=== PATIENT | female | born 1990 | race American Indian/Alaskan Native ===

== ENCOUNTER 2016-06-03 23:58 | Emergency (ER) | payer OTHER ==
[2016-06-04 00:32] VITALS: BMI 40.9
[2016-06-04 00:49] LABS: RBC URINE 30 /hpf (0-3); URINE BACTERIA FEW (<OCC); URINE BILIRUBIN NEGATIVE (NEGATIVE); URINE BLOOD SMALL (NEGATIVE); URINE COLOR AMBER (YELLOW); URINE GLUCOSE (UA) NEG (Normal); URINE KETONE NEGATIVE (NEGATIVE); URINE LEUKOCYTE ESTERASE LARGE Leu/uL (Negative); URINE PROTEIN 100 mg/dL (NEGATIVE); URINE UROBILINOGEN 0.2-1.0 mg/dL (0.2-1.0); WBC CLUMPS FEW /hpf; WBC URINE 410 /hpf (0-5)
== END 2016-06-04 01:25 | disposition home or self-care (01) ==
LOC: H.EROB2 23:58
DX: O47.1 False labor at or after 37 completed weeks of gestation (principal); Z3A.29 29 weeks gestation of pregnancy; O26.93 Pregnancy related conditions, unspecified, third trimester; B37.3 Candidiasis of vulva and vagina

== ENCOUNTER 2016-07-13 19:43 | Emergency (ER) | payer OTHER ==
[2016-07-13 20:13] VITALS: BMI 42.3
[2016-07-13 21:00] LABS: BASO # 0.2 K/uL (0.0-0.2); BASO % 2.2 % (0.0-2.0); EOS # 0.1 K/uL (0.0-0.7); EOS % 0.8 % (0.0-4.0); HEMATOCRIT 33.1 % (34.0-47.0); LYMPH # 3.1 K/uL (1.0-4.3); LYMPH % 31.3 % (20.0-40.0); MEAN CELL VOLUME 88.5 fl (81.0-99.0); MEAN CORPUSCULAR HEMOGLOBIN 29.1 pg (27.0-31.0); MEAN CORPUSCULAR HGB CONC 32.8 g/dL (33.0-37.0); MEAN PLATELET VOLUME 8.4 fl (7.2-11.7); MONO # 1.1 K/uL (0.0-0.8); MONO % 11.3 % (0.0-10.0); NEUT # 5.3 K/uL (1.8-7.0); NEUT % 54.4 % (50.0-75.0); RED CELL DISTRIBUTION WIDTH 14.8 % (11.5-14.5); WHITE BLOOD COUNT 9.8 K/uL (4.8-10.8)
[2016-07-13 21:15] LABS: ALB/GLOB RATIO 0.9 (1.0-2.1); ALKALINE PHOSPHATASE 103 U/L (38-126); ALT/SGPT 24 U/L (9-52); AST/SGOT 24 U/L (14-36); BILIRUBIN,TOTAL 0.2 mg/dl (0.2-1.3); BLOOD UREA NITROGEN 7 mg/dl (7-17); CALCIUM 9.2 mg/dL (8.4-10.2); CARBON DIOXIDE 23 mmol/L (22-30); CHLORIDE 105 mmol/L (98-107); GFR AFRICAN-AMERICAN > 60; GLUCOSE,RANDOM 117 mg/dL (65-105); POTASSIUM 3.7 MMOL/L (3.6-5.0); SODIUM 136 mmol/l (132-148); TOTAL PROTEIN 6.8 G/DL (6.3-8.2)
[2016-07-13 21:23] LABS: RBC URINE 4 /hpf (0-3); URINE BACTERIA RARE (<OCC); URINE BILIRUBIN NEGATIVE (NEGATIVE); URINE BLOOD NEGATIVE (NEGATIVE); URINE COLOR YELLOW (YELLOW); URINE GLUCOSE (UA) NEG (Normal); URINE KETONE NEGATIVE (NEGATIVE); URINE LEUKOCYTE ESTERASE NEG Leu/uL (Negative); URINE PROTEIN 30 mg/dL (NEGATIVE); URINE UROBILINOGEN 0.2-1.0 mg/dL (0.2-1.0); WBC URINE 3 /hpf (0-5)
--- NOTE | 2016-07-13 22:25 | OBHP ---
Datetime: 07/13/2016 20:38 IP Adm Impression: , intrauterine IP Chief Complaint Other: Nonreactive ST in clinic IP Admit Plan: Observation/Evaluation Admit Comment, IP Provider: 26 y/o @ 34.5 weeks with a PMHx remarkable for eclampsia with demise, migraines, and fibromyalgia presents to [facility] after being sent over by Dr. Fry for a non reactive stress test. Pt reports frontal headaches that are 5/10, non radiating, and have been off an d on for the past week. The headaches are associated without aura and some blurried/spotty vision. Sy mptoms have been resolving without intervention and have not been worsening. Not currently symptomati c. No other complaints. Denies VB/LOF/CTX and reports slightly less active FM than normal. Reports sh cal is currently on bed rest since April and receiveing anticoagulation. PMD: Dr. Santos/Dr. Fry (High Risk) POBHx: eclampsia with demise in 2007, Complete SAB @ 10 weeks in 2009, TAB in 2011. PMHx: migraines with aura, fibromylagia, seasonal asthma Meds: Lovenox 50mg, PNVs, Folic Acid, baby aspirin ALL: NKDA PsurgHx: none Social: neg for ETOH, Tobacco, drug use FamilialHx: mother: HTN, DM, Breast cancer, ovarian cancer Father: HTN, DM A/P: 26 y/o @ 34.5 weeks IUP for evalution of nonreactive stress test and possible preelampis a. -monitor BP Q15 min -CBC w diff -LDH -UA -CMP -Case discussed with Dr. Tracee Roberson MD PGY1 @ 21:15 obh addendum: pt seen _ examined by me. s: denies ruq /midepigastric pain, n/v. o: u/a tr prot, other labs nl i:34.5wks .p: d/c home f/u wed with dr santos preeclampt precaut. pt d/w dr santos. Pelvic Type - PN: Not Done Extremities - PN: Normal Abdomen - PN: Normal Back - PN: Normal Breast - PN: Normal Lungs - PN: Normal Heart - PN: Normal Thyroid - PN: Normal Neurologic - PN: Normal HEENT - PN: Normal General - PN: Normal Weight - Estimated: 2240 Comments, ACOG Physical Exam: Lungs: CTA B/L, no WRR Abd: slight tenderness in epigastric region, Soft, ND, +BS Neuro: CN II-XII grossly intact, DTRs 2+ EGA AdmitDate IP: 34.5 Vital Signs Provider: Reviewed Vital Signs Provider Details: elevated BP and tachycardia IP Chief Complaint: Other NICHD Variability Prov Fetus A: Moderate 6-25bpm NICHD Accel Fetus A IP Provider: [id number] FHR Category Provider Fetus A: Category I Genitourinary Exam: Not Done DTRs - PN: Normal Datetime: 06/04/2016 00:33 FHR - Baseline A Provider: 135 Gestation - Est Wks by US: 29.1 NICHD Decel Fetus A IP Provider: None Dilatation, Provider: 0 Effacement, Provider: thick Station, Provider: high
== END 2016-07-13 22:50 | disposition home or self-care (01) ==
LOC: H.EROB2 19:43
DX: O47.03 False labor before 37 completed weeks of gestation, third trimester (principal); Z3A.34 34 weeks gestation of pregnancy; O09.299 Supervision of pregnancy with other poor reproductive or obstetric history, unspecified trimester

== ENCOUNTER 2016-07-18 18:37 | Inpatient (IN) | payer OTHER ==
[2016-07-18 19:07] VITALS: BMI 42.6
[2016-07-18] MEDS ORDERED: Betamethasone Soluspan 30 mg/5mL Inj Susp IM ONE (19:10)
[2016-07-18] MEDS: Lactated Ringer's 1,000 ML IV SCH ×2 (19:30→20:10)
[2016-07-18] MEDS ORDERED: ceFAZolin 2 GM in Sodium Chloride 0.9% 100 ML IVPB ONE (19:32)
--- NOTE | 2016-07-18 19:41 | OBADHP ---
Datetime: 07/18/2016 19:33 Admit Comment, IP Provider: 26 y/o @ 35.3 wks hx of ecampsia with IUFD at 28 weeks currently complaining of elevated BP at home with headache, blurry vision. Pt advsied by PMD to go to hospital imeediately. Upon intial evaluation, pt c/o of severe headache, blurry vision with spots, severe sho n throughout abdomen, less movmenet. VS PE see note A/P 26 y/o P0 @ 35.3 wks GA with severe preeclmapisa -admit to -spoke to MFM: intially delivery at 36 weeks however due to current status recommend immediate del arjun -R/BA/I of possible IOL vs PLTCS d/w patient, pt agrees for PLTCS , consent signed -[id number] -preeclmapitic / admission labs -ancef -abodminal prep -ac to gravity -npo Pelvic Type - PN: Adequate Extremities - PN: Normal Abdomen - PN: Abnormal Back - PN: Normal Breast - PN: Normal Lungs - PN: Normal Heart - PN: Normal Thyroid - PN: Normal Neurologic - PN: Abnormal HEENT - PN: Abnormal General - PN: Normal Presentation-Admit: Vertex FHR - Baseline A Provider: 150 Contraction Comments Provider: irregular Comments, ACOG Physical Exam: GEN: NAD, AAOX 3 HEENT NT/AT RESP: CTABb/l CTV RRR, S2/S1 ABD: Gravid, RUQ tendenress, no palbpe ctx, uterine tenderness EX: 3+ edema Gestation - Est Wks by US: 35.3 IP Hx Assessment: The History has been Reviewed and is Current Vital Signs Provider: Reviewed IP Chief Complaint: Maternal discomfort; Other NICHD Variability Prov Fetus A: Minimal - Undetectable to <5bpm FHR Category Provider Fetus A: Category II NICHD Decel Fetus A IP Provider: None Genitourinary Exam: Normal DTRs - PN: Normal EGA AdmitDate IP: 35.3 IP Adm Impression: , intrauterine IP Admit Plan: Admit to unit; Initiate Section protocol Datetime: 07/13/2016 20:38 IP Chief Complaint Other: Nonreactive ST in clinic Weight - Estimated: 2240 Vital Signs Provider Details: elevated BP and tachycardia NICHD Accel Fetus A IP Provider: [id number] Datetime: 06/04/2016 00:33 Dilatation, Provider: 0 Effacement, Provider: thick Station, Provider: high
[2016-07-18] MEDS ORDERED: Morphine 1 mg/ml preservative-free Inj(Duramorph) ONE (19:57)
[2016-07-18] MEDS ORDERED: ePHEDrine 50 mg/ml Inj ONE (19:57)
[2016-07-18 20:13] LABS: ALB/GLOB RATIO 0.9 (1.0-2.1); ALKALINE PHOSPHATASE 106 U/L (38-126); ALT/SGPT 24 U/L (9-52); AST/SGOT 23 U/L (14-36); BILIRUBIN,TOTAL 0.2 mg/dl (0.2-1.3); BLOOD UREA NITROGEN 4 mg/dl (7-17); CALCIUM 8.8 mg/dL (8.4-10.2); CARBON DIOXIDE 22 mmol/L (22-30); CHLORIDE 106 mmol/L (98-107); GFR AFRICAN-AMERICAN > 60; GLUCOSE,RANDOM 124 mg/dL (65-105); POTASSIUM 3.6 MMOL/L (3.6-5.0); SODIUM 135 mmol/l (132-148); TOTAL PROTEIN 6.6 G/DL (6.3-8.2)
[2016-07-18] MEDS ORDERED: Oxycodone/Acetaminophen 5/325 mg Tab PO PRN (20:15)
[2016-07-18 20:16] LABS: BASO % 0.4 % (0.0-2.0); EOS # 0.1 K/uL (0.0-0.7); EOS % 0.7 % (0.0-4.0); HEMATOCRIT 32.9 % (34.0-47.0); LYMPH # 3.2 K/uL (1.0-4.3); MEAN CORPUSCULAR HEMOGLOBIN 28.6 pg (27.0-31.0); MEAN CORPUSCULAR HGB CONC 32.9 g/dL (33.0-37.0); MEAN PLATELET VOLUME 8.5 fl (7.2-11.7); MONO # 1.1 K/uL (0.0-0.8); MONO % 10.2 % (0.0-10.0); NEUT # 6.2 K/uL (1.8-7.0); NEUT % 58.7 % (50.0-75.0); RED CELL DISTRIBUTION WIDTH 14.9 % (11.5-14.5); WHITE BLOOD COUNT 10.6 K/uL (4.8-10.8)
[2016-07-18] MEDS ORDERED: Magnesium Sulfate 4 gm/100 ml 4 GM/100 ML BAG IV ONE (21:14)
--- NOTE | 2016-07-18 21:39 | OBHP ---
Datetime: 07/18/2016 19:33 IP Adm Impression: , intrauterine IP Admit Plan: Admit to unit; Initiate Section protocol Admit Comment, IP Provider: 26 y/o @ 35.3 wks hx of ecampsia with IUFD at 28 weeks currently complaining of elevated BP at home with headache, blurry vision. Pt advsied by PMD to go to hospital imeediately. Upon intial evaluation, pt c/o of severe headache, blurry vision with spots, severe sho n throughout abdomen, less movmenet. pt being seen regulary by [facility], with biweekly nst had non r eactice nst last week in [facility] officed ,sent to hospital for prolonged moitoring, subseuently dc/ hoem with 24 hour urine. VS PE see note A/P 26 y/o P0 @ 35.3 wks GA with severe preeclmapisa -admit to LD -spoke to MFM: intially delivery at 36 weeks however due to current status recommend immediate del arjun -R/BA/I of possible IOL vs PLTCS d/w patient, pt agrees for PLTCS , consent signed -[id number] -preeclmapitic / admission labs -ancef -abodminal prep -ac to gravity -npo Pelvic Type - PN: Adequate Extremities - PN: Normal Abdomen - PN: Abnormal Back - PN: Normal Breast - PN: Normal Lungs - PN: Normal Heart - PN: Normal Thyroid - PN: Normal Neurologic - PN: Abnormal HEENT - PN: Abnormal General - PN: Normal Presentation-Admit: Vertex FHR - Baseline A Provider: 150 Contraction Comments Provider: irregular Comments, ACOG Physical Exam: GEN: NAD, AAOX 3 HEENT NT/AT RESP: CTABb/l CTV RRR, S2/S1 ABD: Gravid, RUQ tendenress, no palbpe ctx, uterine tenderness EX: 3+ edema Gestation - Est Wks by US: 35.3 IP Hx Assessment: The History has been Reviewed and is Current EGA AdmitDate IP: 35.3 Vital Signs Provider: Reviewed IP Chief Complaint: Maternal discomfort; Other NICHD Variability Prov Fetus A: Minimal - Undetectable to <5bpm FHR Category Provider Fetus A: Category II NICHD Decel Fetus A IP Provider: None Dilatation, Provider: 0 Genitourinary Exam: Normal DTRs - PN: Normal
--- NOTE | 2016-07-18 21:41 | OBDS ---
[facility] Delivery Doctor: Jerrica Santos MD Scrub Nurse: Brian Salinas Machine Shop Specialist: Get Mason RN MATERNAL INFORMATION Delivery Anesthesia: Spinal Medications in Delivery: oxytocin 20 unit/500cc LR (Annotations: Data stored by CPN on behalf of use r) Placenta Cultured: No Maternal Complications: None Provider Comments: live female infant, cephalic presentation, apgars 9,9 weight 5lbs 0 ounces/ pedia tricain present at delivery, normal tubes and ovaries bilaterally. Dr Hernandez was surgical endoscopist and present for entire case, enssentail in gaining entry, retra ctin, exposure, delivery baby closign all layers ebls 800ml no compliatins LABOR SUMMARY EDC: 08/19/2016 00:00 No. Babies in Womb: 1 Attempted: No Labor Anesthesia: None LABOR INFORMATION Reason for Induction: Not Applicable Oxytocin: N/A Group B Beta Strep: Negative Steroids Given: None Reason Steroids Not Administered: Not Applicable MEMBRANES Membranes Rupture Method: Artificial Rupture of Membranes: 07/18/2016 20:51 Length of Rupture (hrs): 0.02 Amniotic Fluid Color: Clear Amniotic Fluid Amount: Moderate STAGES OF LABOR Stage 3 hrs: 0 Stage 3 min: 1 VAGINAL DELIVERY Laceration Repair Note: na CSECTION DELIVERY Primary Indication: Severe PIH, Unfavorable Cervix Secondary Indication: Other CSection Urgency: Non Elective CSection Incidence: Primary Labor: No Labor Elective: Nonelective CSection Incision: Lower Uterine Transverse BABY A INFORMATION Delivery Date/Time: 07/18/2016 20:52 Method of Delivery: Born in Route : No : N/A Forceps: N/A Vacuum Extraction: N/A Shoulder Dystocia : No SHOULDER DYSTOCIA BABY A Infant Delivery Date/Time: 07/18/2016 20:52 PRESENTATION/POSITION BABY A Presentation: Cephalic Cephalic Presentation: Vertex Breech Presentation: N/A PLACENTA INFORMATION BABY A Placenta Delivery Time : 07/18/2016 20:53 Placenta Method of Delivery: Manual Removal Placenta Status: Delivered SCORES BABY A Heart Rate 1 min: >100 bpm Resp Effort 1 min: Good Cry Reflex Irritability 1 min: Cough or Sneeze or Pulls Away Muscle Tone 1 min: Active Motion Color 1 min: Body [place], Extremities Blue SCORE 1 MIN: 9 Heart Rate 5 min: >100 bpm Resp Effort 5 min: Good Cry Reflex Irritability 5 min: Cough or Sneeze or Pulls Away Muscle Tone 5 min: Active Motion Color 5 min: Body [place], Extremities Blue SCORE 5 MIN: 9 INFORMATION BABY A Gestational Age at Delivery: 35.3 Gestational Status: Outcome : Liveborn Condition : Stable Infant Sex: Female IDENTIFICATION/MEDS BABY A ID Band Number: [id number] ID Band Location: Left Leg; Left Arm WEIGHT/LENGTH BABY A Birthweight (gms): 2260 Weight (lb): 5 Infant Weight (oz): 0 CORD INFORMATION BABY A No. Cord Vessels: 3 Nuchal Cord : N/A Cord Blood Taken: Yes Suction: None
[2016-07-18] MEDS ORDERED: Magnesium Sulfate 2 gm/50 ml 2 GM/50 ML BAG IVPB ONE (21:44)
--- NOTE | 2016-07-18 21:47 | PCM.SURG1 ---
Surgeon's Initial Post Op Note - Surgeon's Notes Surgeon: Jimena Santos MD Dry Mill Worker: Chris Hernandez MD Type of Anesthesia: Spinal Pre-Operative Diagnosis: Severe preeclampsia, placenta abruption, poor obstetrical history, decreased movements Operative Findings: normal appearng uteurs, tubes and ovaries bilaterally, live [place] cephalic presentatin, agpars 9,9 weight of 5 pounds. bus boy present at delivery. Dr Chris Hernandez was certified surgical first assistant and essential in gaining entry, retraction, exposure, holidng bladder blade, delivering baby. Post-Operative Diagnosis: same as above Operation Performed: Primary Low Transverse Cesearen section Specimen/Specimens Removed: placenta Estimated Blood Loss: EBL {In ML}: 800 Blood Products Given: N/A Drains Used: No Drains Date of Surgery/Procedure: 07/18/16 Time of Surgery/Procedure: 20:00
[2016-07-18] MEDS ORDERED: DiphenhydrAMINE 50 mg/ml Inj IVP PRN (22:32)
[2016-07-18 22:45] LABS: RBC URINE 2 /hpf (0-3); URINE BACTERIA OCC (<OCC); URINE BILIRUBIN NEGATIVE (NEGATIVE); URINE BLOOD NEGATIVE (NEGATIVE); URINE COLOR YELLOW (YELLOW); URINE GLUCOSE (UA) NEG (Normal); URINE KETONE NEGATIVE (NEGATIVE); URINE LEUKOCYTE ESTERASE NEG Leu/uL (Negative); URINE PROTEIN NEGATIVE (NEGATIVE); URINE UROBILINOGEN 0.2-1.0 mg/dL (0.2-1.0); WBC URINE 2 /hpf (0-5)
[2016-07-18] MEDS ORDERED: MAGNESIUM SUL IV ONE (22:53)
[2016-07-18] MEDS ORDERED: SW IV ONE (22:53)
[2016-07-18] MEDS ORDERED: Magnesium Sul 40GM/1L SW 40 GM/1,000 ML ML IV ONE (23:31)
[2016-07-19] MEDS: ceFAZolin 1 GM in Sodium Chloride 0.9% 100 ML IVPB SCH ×2 (05:06→17:27)
[2016-07-19 05:20] VITALS: BP 103/46; PULSE 101; RESP 17
[2016-07-19 08:09] LABS: BASO % 0.2 % (0.0-2.0); EOS % 0.3 % (0.0-4.0); LYMPH # 2.1 K/uL (1.0-4.3); LYMPH % 14.1 % (20.0-40.0); MEAN CELL VOLUME 88.4 fl (81.0-99.0); MEAN CORPUSCULAR HEMOGLOBIN 28.4 pg (27.0-31.0); MEAN CORPUSCULAR HGB CONC 32.1 g/dL (33.0-37.0); MEAN PLATELET VOLUME 8.4 fl (7.2-11.7); MONO # 1.4 K/uL (0.0-0.8); MONO % 9.5 % (0.0-10.0); NEUT # 11.2 K/uL (1.8-7.0); NEUT % 75.9 % (50.0-75.0); RED CELL DISTRIBUTION WIDTH 15.3 % (11.5-14.5); WHITE BLOOD COUNT 14.8 K/uL (4.8-10.8)
--- NOTE | 2016-07-19 09:46 | OBPPN ---
Datetime: 07/19/2016 09:28 PP Pain Prov: Within normal limits PP Nausea Prov: Denies PP Flatus Prov: No PP BM Prov: No PP Breasts Prov: Normal PP Heart Prov: Normal PP Lungs Prov: Normal PP Abdomen/Uterus Prov: Normal PP Lochia Prov: Normal PP Vulva/Perineum Prov: Normal PP CVA Tenderness Prov: Normal PP Extremities Prov: Normal PP C/S Incision Prov: Normal PP Progress Prov: Normal PP Impression Prov: Normal progression PP Plan Prov: Continue present management PP Progress Note Prov: pt doing well with no complaints pt on mgso4 for seizure proplyaixs VSS Urine outpuat >30cc/hr PE see aove A/P s/p PLTCS POD #1 for severe preeclampsia -andria MgSO4 -Preelcapit labs q 6 hours -Ins/outs -IVH -Diet advance as tolerated -pain mangemnt -incentive psiromter -abdominal binder -f/u am labs -cont current menate -encuarge breat feeding -scd IP PP Procedures Comments: Magnesium 24 ho ur Vital Signs Provider PP: Reviewed; Within Normal Limits
--- NOTE | 2016-07-19 12:15 | OP ---
PROCEDURE DATE: 07/18/2016 SURGEON: Dr. Jimena Santos SERVICE DESK MANAGER: Blake Hernandez TYPE OF ANESTHESIA: Spinal. PREOPERATIVE DIAGNOSES: Severe preeclampsia, placenta abruption. OBSTETRICAL HISTORY: Decreased movement. OPERATIVE FINDINGS: Normal appearing uterus, tubes, and ovaries bilaterally. Life female in cephalic presentation. Clear amniotic fluid. Apgars 9 and 9, weight of 5 pounds. Motel Manager pres ent at delivery. Dr. Blake Hernandez was the surgical consultant and essential in gaining entry, retrac tion, exposure, holding bladder blade, delivery of baby. POSTOPERATIVE DIAGNOSES: Severe preeclampsia, placenta abruption. OPERATION PERFORMED: Primary low transverse section. SPECIMEN REMOVED: Placenta. ESTIMATED BLOOD LOSS: 800 mL. BLOOD PRODUCTS: None. COMPLICATIONS: None. The patient was taken to the operating room where she was given spinal anesthesia. When this was fou nd to be adequate, the patient was positioned on the operating table in dorsal supine position. The patient was then prepped and draped in the usual normal sterile fashion. Gillespie catheter was inserted prior to the prepping and draping. The patient was given preoperative prophylactic antibiotic s . Timeout was performed to confirm correct patient and correct procedure. A Pfannenstiel ski n incision was made with the scalpel and carried in line to the underlying fascia with the Bovie. Th e fascia was incised in the midline and the incision was extended laterally with the Bovie. The supe rior aspect of the fascial incision was grasped, elevated with Ofe clamps and the underlying rectu s muscles were dissected off bluntly. Attention then turned to the inferior aspect of incision, whic h in similar fashion was grasped, elevated with Ofe clamps and the underlying rectus muscles disse cted off bluntly. Rectus muscles were then bluntly in the midline. The peritoneum identif ied and a clear space entered bluntly. Incision was extended with good visualization of the bl adder. Lower end of the [place] was then inserted and the lower uterine segment was incised in a tra nsverse fashion. The uterine incision was extended laterally bluntly. The surgeon's hand entered th e uterine cavity. Amniotic fluid membranes were ruptured and was clear fluid . The 's he ad was delivered atraumatically followed by delivery of the shoulders followed by the body. Both ora l and nasal passages of the baby were bulb suctioned. Umbilical cord was clamped and cut and baby wa s handed off to the waiting retirement consultant. Cord blood and cord gases were collected and sent x 2. Th e uterus was then delivered manually. The uterus was exteriorized and cleared of all clots and debri s. The uterus was repaired with 0 Vicryl in running continuous locked fashion. A second layer of th e same suture was used to close the uterus in a running imbricated manner. There was good hemostasis at the uterine incision site. There was normal tubes and ovaries. The uterus was returned to the [facility]. The pericolic gutters were cleared of all clots and debris. Good hemostasis noted at the ma erine incision site. The peritoneum was reapproximated and closed with 2-0 chromic in a running cont inuous fashion. The rectus muscle was reapproximated and closed with 2-0 chromic in an interrupted m shellie. The fascia was reapproximated and closed with 0 Vicryl in running continuous fashion. Subcut aneous space was closed with 2-0 plain in an interrupted manner. The skin was reapproximated and jake sed with 4-0 Monocryl in a running subcuticular fashion. At the end of his procedure, all needle, sp onge and instrument counts were noted to be correct x 2. The patient tolerated the procedure well an d was transferred to the recovery room in stable condition. Jimena Santos MD cc: [id number] TT: 07/19/2016 12:14:09 en
[2016-07-20] MEDS: Oxycodone/Acetaminophen 5/325 mg Tab PO PRN ×4 (01:49→22:08)
[2016-07-20] MEDS ORDERED: ceFAZolin 1 GM in Sodium Chloride 0.9% 100 ML IVPB SCH (05:30)
[2016-07-20] MEDS ORDERED: Bisacodyl 5mg EC Tab PO PRN (08:11)
[2016-07-20] MEDS: Simethicone 80 mg Chewtab PO SCH ×3 (08:54→16:11)
[2016-07-20] MEDS ORDERED: Bacitracin/Neomycin/Polymyxin 30GM OINT TOP SCH (13:00)
[2016-07-20] MEDS: Neomycin/Polymyxin/Bacitracin OINT 0.5OZ TP SCH ×3 (13:33→22:02)
--- NOTE | 2016-07-20 14:11 | OBPPN ---
Datetime: 07/20/2016 12:37 PP Pain Prov: Within normal limits PP Nausea Prov: Denies PP Flatus Prov: Yes PP Breasts Prov: Normal PP Heart Prov: Normal PP Lungs Prov: Normal PP Abdomen/Uterus Prov: Normal PP Lochia Prov: Normal PP Vulva/Perineum Prov: Not Done PP CVA Tenderness Prov: Not Done PP Extremities Prov: Normal PP C/S Incision Prov: Normal PP Progress Prov: Normal PP Comments Phys Exam Prov: tender abdomen upon removal of abdominal binder superficial skin abrasion, no bleeding observed incision: c/d/i PP Impression Prov: Normal progression PP Plan Prov: Continue present management PP Progress Note Prov: Patient complaining of pain and skin peeling at surgical site s/p mag OOB A/P s/p PLTCS POD #2 for severe preeclampsia -Preelcapit labs q 6 hours -Ins/outs -IVH -Diet advance as tolerated -pain mangemnt -incentive spirometer -encuarge breast feeding -f/u urine culture and UA -given topical neosporin fro superficial skin abrasion Herbert Hendrickson MD Senior Lead Developer obh addendum: pt seen _ examined by me with following modificaiton- serial labs not indicated at present p: mgso4 d/c'd oob. ambulate. IP PP Procedures: None Vital Signs Provider PP: Reviewed
[2016-07-20 16:08] VITALS: TEMP 98.4
[2016-07-20 21:14] LABS: RBC URINE 72 /hpf (0-3); URINE BACTERIA FEW (<OCC); URINE BILIRUBIN NEGATIVE (NEGATIVE); URINE BLOOD LARGE (NEGATIVE); URINE COLOR YELLOW (YELLOW); URINE GLUCOSE (UA) NEG (Normal); URINE KETONE NEGATIVE (NEGATIVE); URINE LEUKOCYTE ESTERASE TRACE Leu/uL (Negative); URINE PROTEIN NEGATIVE (NEGATIVE); URINE UROBILINOGEN 0.2-1.0 mg/dL (0.2-1.0); WBC URINE 9 /hpf (0-5)
[2016-07-21] MEDS: Simethicone 80 mg Chewtab PO SCH ×3 (01:50→17:35)
[2016-07-22] MEDS: Simethicone 80 mg Chewtab PO SCH ×2 (01:01→08:17)
== END 2016-07-22 10:50 | disposition home or self-care (01) | DRG 765 ==
LOC: H.EROB2 18:37 → H.L&D 19:10 → H.OB/GYN 07-20 01:16
PROVIDERS: ADMIT Obstetrics & Gynecology; ATTEND Obstetrics & Gynecology
PROC: 10D00Z1 Extraction of Products of Conception, Low, Open Approach (ICD-10-PCS; principal; 2016-07-18)
PROC: 4A1HXCZ Monitoring of Products of Conception, Cardiac Rate, External Approach (ICD-10-PCS; 2016-07-18)
DX: O60.14X0 Preterm labor third trimester with preterm delivery third trimester, not applicable or unspecified (principal); O45.93 Premature separation of placenta, unspecified, third trimester; O14.14 Severe pre-eclampsia complicating childbirth; O36.8130 Decreased fetal movements, third trimester, not applicable or unspecified; Z37.0 Single live birth; Z3A.35 35 weeks gestation of pregnancy; Z87.59 Personal history of other complications of pregnancy, childbirth and the puerperium